=== PATIENT | male | born 1985 | race Caucasian/White ===

== ENCOUNTER 2019-01-23 13:58 | Emergency (ER) | payer SELFPAY ==
[2019-01-23] MEDS ORDERED: Ibuprofen 800 MG Tab PO ONE (14:52)
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
== END 2019-01-23 16:00 | disposition home or self-care (01) ==
LOC: MW.ED 13:58
DX: J06.9 Acute upper respiratory infection, unspecified (principal); F17.210 Nicotine dependence, cigarettes, uncomplicated; Z88.0 Allergy status to penicillin; Z88.1 Allergy status to other antibiotic agents; Z88.5 Allergy status to narcotic agent
CPT/HCPCS: 87804; 99283; A9270; 99282

== ENCOUNTER 2019-02-07 21:34 | Emergency (ER) | payer SELFPAY ==
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
[2019-02-07] MEDS ORDERED: Lidocaine 1% 10 ML MDV INJECT ONE (21:52)
== END 2019-02-07 22:06 | disposition home or self-care (01) ==
LOC: MW.ED 21:34
DX: S71.131A Puncture wound without foreign body, right thigh, initial encounter (principal); Z88.1 Allergy status to other antibiotic agents; Z88.0 Allergy status to penicillin; Z88.6 Allergy status to analgesic agent; W26.0XXA Contact with knife, initial encounter
CPT/HCPCS: 12001; 99283; J2001

== ENCOUNTER 2019-02-18 14:46 | Emergency (ER) | payer SELFPAY ==
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
== END 2019-02-18 15:28 | disposition home or self-care (01) ==
LOC: MW.ED 14:46
DX: S71.131D Puncture wound without foreign body, right thigh, subsequent encounter (principal); F17.210 Nicotine dependence, cigarettes, uncomplicated; Z88.1 Allergy status to other antibiotic agents; Z88.0 Allergy status to penicillin; Z88.6 Allergy status to analgesic agent; W26.0XXD Contact with knife, subsequent encounter
CPT/HCPCS: 99282

== ENCOUNTER 2019-04-13 15:53 | Emergency (ER) | payer SELFPAY ==
[2019-04-13] MEDS ORDERED: Ondansetron 4 MG/2 ML SDV IVPUSH ONE (16:28)
[2019-04-13] MEDS ORDERED: Pantoprazole 40 MG Vial IVPUSH ONE (16:28)
[2019-04-13] MEDS ORDERED: Sodium Chloride 0.9% 1,000 ML IV ONE (16:28)
--- NOTE | 2019-04-13 16:30 | EDM.PDOC ---
ED HPI GENERAL MEDICAL PROBLEM - General Chief Complaint: Gastrointestinal Problem Stated Complaint: VOMITING LOOSE STOOLS Time Seen by Provider: 04/13/19 16:29 Source of Information: Reports: Patient - History of Present Illness INITIAL COMMENTS - FREE TEXT/NARRATIVE: HISTORY AND PHYSICAL: History of present illness: []Patient has not been feeling well over the last couple of days with mild nausea today he did have an episode of vomiting and loose stools no fever chills sweats no chest pain shortness breath headache dizziness palpitation no urine symptoms On exam he does have sinus pain right greater than left with boggy nasal mucosa mucus production consistent with sinusitis Review of systems: As per history of present illness and below otherwise all systems reviewed and negative. Past medical history: As per history of present illness and as reviewed below otherwise noncontributory. Surgical history: As per history of present illness and as reviewed below otherwise noncontributory. Social history: No reported history of drug or alcohol abuse. Family history: As per history of present illness and as reviewed below otherwise noncontributory. Physical exam: HEENT: Atraumatic, normocephalic, pupils reactive, negative for conjunctival pallor or scleral icterus, mucous membranes moist, throat clear, neck supple, nontender, trachea midline. Sclerae sinus pain right greater than left Lungs: Clear to auscultation, breath sounds equal bilaterally, chest nontender. Heart: S1S2, regular, negative for clicks, rubs, or JVD. Abdomen: Soft, nondistended, nontender. Negative for masses or hepatosplenomegaly. Negative for costovertebral tenderness. Pelvis: Stable nontender. Genitourinary: Deferred. Rectal: Deferred. Extremities: Atraumatic, negative for cords or calf pain. Neurovascular unremarkable. Neuro: Awake, alert, oriented. Cranial nerves II through XII unremarkable. Cerebellum unremarkable. Motor and sensory unremarkable throughout. Exam nonfocal. Diagnostics: [CBC CMP UA] Therapeutics: [Normal saline proton X Zofran Abdomen flat and upright Amoxil Zofran RP W ] Impression: Viral syndrome] Sinusitis Definitive disposition and diagnosis as appropriate pending reevaluation and review of above. Abdominal Pain Score (Numeric/FACES): 5 - Related Data Allergies Allergy/AdvReac Type Severity Reaction Status Date / Time amoxicillin Allergy Other Verified 04/13/19 16:23 Penicillins Allergy Hives Verified 04/13/19 16:23 tramadol Allergy Other Verified 04/13/19 16:23 Home Meds: Home Meds Albuterol [Ventolin HFA] 2 puff INH Q4HR PRN #1 inhaler 01/23/19 [Rx] Past Medical History HEENT History: Reports: None Cardiovascular History: Reports: None Respiratory History: Reports: None Gastrointestinal History: Reports: None Genitourinary History: Reports: None Musculoskeletal History: Reports: None Neurological History: Reports: None Psychiatric History: Reports: Bipolar Endocrine/Metabolic History: Reports: None Hematologic History: Reports: None Immunologic History: Reports: None Oncologic (Cancer) History: Reports: None Dermatologic History: Reports: None - Infectious Disease History Infectious Disease History: Reports: Chicken Pox - Past Surgical History Head Surgeries/Procedures: Reports: None Social & Family History - Family History Family Medical History: Noncontributory - Tobacco Use Smoking Status *Q: Current Every Day Smoker Years of Tobacco use: 20 Packs/Tins Daily: 2 - Caffeine Use Caffeine Use: Reports: Coffee - Recreational Drug Use Recreational Drug Use: Yes Recreational Drug Type: Reports: Marijuana/Hashish Recreational Drug Use Frequency: Weekly ED ROS GENERAL - Review of Systems Review Of Systems: See Below ED EXAM, GENERAL - Physical Exam Exam: See Below Course - Vital Signs Last Recorded V/S: Last Vital Signs Temp 97.4 F 04/13/19 16:23 Pulse 79 04/13/19 17:47 Resp 18 04/13/19 17:47 BP 135/88 04/13/19 17:47 Pulse Ox 95 04/13/19 17:47 - Orders/Labs/Meds Orders: Active Orders 24 hr Category Date Time Status Abdomen 2V AP Flat Upright [CR] Stat Exams 04/13/19 17:44 Taken Labs: Laboratory Tests 04/13/19 04/13/19 04/13/19 Range/Units 16:51 16:51 16:55 WBC 10.69 (4.0-11.0) K/uL RBC 5.50 (4.50-5.90) M/uL Hgb 17.9 H (13.0-17.0) g/dL Hct 49.1 (38.0-50.0) % MCV 89.3 (80.0-98.0) fL MCH 32.5 H (27.0-32.0) pg MCHC 36.5 (31.0-37.0) g/dL RDW Std Deviation 41.0 (28.0-62.0) fl RDW Coeff of [place] 13 (11.0-15.0) % Plt Count 209 (150-400) K/uL MPV 10.30 (7.40-12.00) fL Neut % (Auto) 72.8 (48.0-80.0) % Lymph % (Auto) 19.8 (16.0-40.0) % [place] % (Auto) 6.5 (0.0-15.0) % Eos % (Auto) 0.7 (0.0-7.0) % Baso % (Auto) 0.2 (0.0-1.5) % Neut # (Auto) 7.8 H (1.4-5.7) K/uL Lymph # (Auto) 2.1 (0.6-2.4) K/uL [place] # (Auto) 0.7 (0.0-0.8) K/uL Eos # (Auto) 0.1 (0.0-0.7) K/uL Baso # (Auto) 0.0 (0.0-0.1) K/uL Nucleated RBC % 0.0 /100WBC Nucleated RBCs # 0 K/uL Sodium 139 (136-148) mmol/L Potassium 3.6 (3.5-5.1) mmol/L Chloride 103 (98-107) mmol/L Carbon Dioxide 24.9 (21.0-32.0) mmol/L BUN 7 (7.0-18.0) mg/dL Creatinine 0.8 (0.8-1.3) mg/dL Est Cr Clr Drug Dosing 145.50 mL/min Estimated GFR (MDRD) > 60.0 ml/min Glucose 86 (74-106) mg/dL Calcium 8.6 (8.5-10.1) mg/dL Total Bilirubin 0.6 (0.2-1.0) mg/dL AST 41 H (15-37) IU/L ALT 46 (14-63) IU/L Alkaline Phosphatase 102 (46-116) U/L Total Protein 7.4 (6.4-8.2) g/dL Albumin 3.9 (3.4-5.0) g/dL Globulin 3.5 (2.6-4.0) g/dL Albumin/Globulin Ratio 1.1 (0.9-1.6) Urine Color YELLOW Urine Appearance CLEAR Urine pH 7.0 (5.0-8.0) Ur Specific [place] 1.015 (1.001-1.035) Urine Protein NEGATIVE (NEGATIVE) mg/dL Urine Glucose (UA) NEGATIVE (NEGATIVE) mg/dL Urine Ketones NEGATIVE (NEGATIVE) mg/dL Urine Occult Blood NEGATIVE (NEGATIVE) Urine Nitrite NEGATIVE (NEGATIVE) Urine Bilirubin NEGATIVE (NEGATIVE) Urine Urobilinogen 0.2 (<2.0) EU/dL Ur Leukocyte Esterase NEGATIVE (NEGATIVE) Meds: Medications Discontinued Medications Generic Name Dose Route Start Last Admin Trade Name Freq PRN Reason Stop Dose Admin Sodium Chloride 1,000 mls @ 999 mls/hr 04/13/19 16:28 04/13/19 17:00 Normal Saline IV 04/13/19 17:28 999 mls/hr STAT ONE Administration Ondansetron HCl 8 mg 04/13/19 16:28 04/13/19 17:01 Zofran IVPUSH 04/13/19 16:29 8 mg ONETIME ONE Administration Pantoprazole Sodium 80 mg 04/13/19 16:28 04/13/19 17:02 Protonix Iv IVPUSH 04/13/19 16:29 80 mg .BOLUS ONE Administration Departure - Departure Time of Disposition: 18:37 Disposition: Home, Self-Care 01 Condition: Good Clinical Impression: Viral syndrome, Sinusitis - Discharge Information Referrals: PCP,None [Primary Care Provider] - Forms: ED Department Discharge Additional Instructions: Medication as prescribed [id number]-[id number] allergy medication such as Zyrtec or Claritin may benefit Return if symptoms persist or worsen Follow-up with primary care in 2 weeks [facility] - Primary Care [address] [place] [address] The following information is given to patients seen in the emergency department who are being discharged to home. This information is to outline your options for follow-up care. We provide all patients seen in our emergency department with a follow-up referral. The need for follow-up, as well as the timing and circumstances, are variable depending upon the specifics of your emergency department visit. If you don't have a primary care physician on staff, we will provide you with a referral. We always advise you to contact your personal physician following an emergency department visit to inform them of the circumstance of the visit and for follow-up with them and/or the need for any referrals to a consulting specialist. The emergency department will also refer you to a specialist when appropriate. This referral assures that you have the opportunity for follow-up care with a specialist. All of these measure are taken in an effort to provide you with optimal care, which includes your follow-up. Under all circumstances we always encourage you to contact your private physician who remains a resource for coordinating your care. When calling for follow-up care, please make the office aware that this follow-up is from your recent emergency room visit. If for any reason you are refused follow-up, please contact the [facility] emergency department at and asked to speak to the emergency department charge nurse. - My Orders Last 24 Hours: My Active Orders 04/13/19 17:44 Abdomen 2V AP Flat Upright [CR] Stat - Assessment/Plan Last 24 Hours: My Active Orders 04/13/19 17:44 Abdomen 2V AP Flat Upright [CR] Stat
[2019-04-13 17:43] LABS: CHLORIDE,CL 103 mmol/L (98-107); SODIUM,NA 139 mmol/L (136-148)
--- NOTE | 2019-04-13 18:47 | CR ---
INDICATION: Nausea and vomiting since yesterday TECHNIQUE: Abdomen 4 view. COMPARISON: None. FINDINGS: Bowel: Bowel pattern is normal. No significant stool in the colon. Soft tissues: No sign of free air. No sign of soft tissue mass. No suspicious calcifications. Bones: Unremarkable for age. IMPRESSION: Unremarkable abdomen. Dictated by: He James MD @ 04/13/2019 18:45:16 (Electronically Signed)
== END 2019-04-13 18:55 | disposition home or self-care (01) ==
LOC: MW.ED 15:53
DX: B34.9 Viral infection, unspecified (principal); J32.9 Chronic sinusitis, unspecified; F17.210 Nicotine dependence, cigarettes, uncomplicated; Z88.1 Allergy status to other antibiotic agents; Z88.0 Allergy status to penicillin; Z88.6 Allergy status to analgesic agent
CPT/HCPCS: 74019; 80053; 81003; 85025; 96361; 96374; 96375; 99284; C9113; J2405; J7040; 99283

== ENCOUNTER 2019-05-04 10:11 | Emergency (ER) | payer SELFPAY ==
--- NOTE | 2019-05-04 10:39 | EDM.PDOC ---
ED HPI GENERAL MEDICAL PROBLEM - General Chief Complaint: Medication Administration Stated Complaint: ALLERGIC REACTION Time Seen by Provider: 05/04/19 10:33 - History of Present Illness INITIAL COMMENTS - FREE TEXT/NARRATIVE: 34 y/o male here for nasal congestion and sore throat. Patient states that he has been having clear nasal discharge for past few days. No fevers. Non productive cough. He smokes on daily basis. Sore throat. No nausea, vomiting. Was recently seen in the ER few weeks ago and prescribed antibiotics. States that he took them but did no buy rest of recommended medications. no other sick contacts. - Related Data Allergies Allergy/AdvReac Type Severity Reaction Status Date / Time amoxicillin Allergy Other Verified 05/04/19 10:16 Penicillins Allergy Hives Verified 05/04/19 10:16 tramadol Allergy Other Verified 05/04/19 10:16 Home Meds: Home Meds Albuterol [Ventolin HFA] 2 puff INH Q4HR PRN #1 inhaler 01/23/19 [Rx] Past Medical History HEENT History: Reports: None Cardiovascular History: Reports: None Respiratory History: Reports: None Gastrointestinal History: Reports: None Genitourinary History: Reports: None Musculoskeletal History: Reports: None Neurological History: Reports: None Psychiatric History: Reports: Bipolar Endocrine/Metabolic History: Reports: None Hematologic History: Reports: None Immunologic History: Reports: None Oncologic (Cancer) History: Reports: None Dermatologic History: Reports: None - Infectious Disease History Infectious Disease History: Reports: Chicken Pox - Past Surgical History Head Surgeries/Procedures: Reports: None Social & Family History - Family History Family Medical History: Noncontributory - Tobacco Use Smoking Status *Q: Current Every Day Smoker Years of Tobacco use: 20 Packs/Tins Daily: 2 - Caffeine Use Caffeine Use: Reports: Coffee - Recreational Drug Use Recreational Drug Use: Yes Recreational Drug Type: Reports: Marijuana/Hashish ED ROS GENERAL - Review of Systems Review Of Systems: ROS reveals no pertinent complaints other than HPI. ED EXAM, GENERAL - Physical Exam Exam: See Below General Appearance: Alert, WD/WN, No Apparent Distress Nose: Normal Inspection, Normal Mucosa Throat/Mouth: Other (erythematous pharynx, cobblestoning present. No exudates or enalarged tonsils. No cervical lymphadenopathy. ) Respiratory/Chest: No Respiratory Distress, Lungs Clear, No Accessory Muscle Use Cardiovascular: Normal Peripheral Pulses, Regular Rate, Rhythm GI/Abdominal: Normal Bowel Sounds, Soft, Non-Tender Skin Exam: Warm, Dry Course - Vital Signs Text/Narrative:: Recommended flonase BID for allergy symptoms. Keep hydrated. Quit smoking. Last Recorded V/S: Last Vital Signs Temp 36.9 C 05/04/19 10:16 Pulse 109 H 05/04/19 10:16 Resp 16 05/04/19 10:16 BP 140/88 05/04/19 10:16 Pulse Ox 97 05/04/19 10:16 Departure - Departure Time of Disposition: 10:37 Disposition: Home, Self-Care 01 Clinical Impression: Seasonal allergies, Post-nasal drip - Discharge Information Instructions: Allergies, Adult, [id number], Postnasal Drip, Nasal Allergies Referrals: PCP,None [Primary Care Provider] - Additional Instructions: The following information is given to patients seen in the emergency department who are being discharged to home. This information is to outline your options for follow-up care. We provide all patients seen in our emergency department with a follow-up referral. The need for follow-up, as well as the timing and circumstances, are variable depending upon the specifics of your emergency department visit. If you don't have a primary care physician on staff, we will provide you with a referral. We always advise you to contact your personal physician following an emergency department visit to inform them of the circumstance of the visit and for follow-up with them and/or the need for any referrals to a consulting specialist. The emergency department will also refer you to a specialist when appropriate. This referral assures that you have the opportunity for follow-up care with a specialist. All of these measure are taken in an effort to provide you with optimal care, which includes your follow-up. Under all circumstances we always encourage you to contact your private physician who remains a resource for coordinating your care. When calling for follow-up care, please make the office aware that this follow-up is from your recent emergency room visit. If for any reason you are refused follow-up, please contact the [facility] Emergency Department at and asked to speak to the emergency department charge nurse. Follow-up with PCP. Buy Flonase over the counter. Take twice a day. Can take other over the counter medications for allergies like Claritin, Zyrtec. Stay hydrated.
== END 2019-05-04 10:47 | disposition home or self-care (01) ==
LOC: MW.ED 10:11
DX: J30.2 Other seasonal allergic rhinitis (principal); R09.82 Postnasal drip; F17.210 Nicotine dependence, cigarettes, uncomplicated; Z88.1 Allergy status to other antibiotic agents; Z88.0 Allergy status to penicillin; Z88.6 Allergy status to analgesic agent
CPT/HCPCS: 99281

== ENCOUNTER 2019-05-27 13:07 | Emergency (ER) | payer SELFPAY ==
--- NOTE | 2019-05-27 14:02 | EDM.PDOC ---
ED HPI GENERAL MEDICAL PROBLEM - General Chief Complaint: ENT Problem Stated Complaint: PERSISTANT THROAT PAIN Time Seen by Provider: 05/27/19 13:18 Source of Information: Reports: Patient History Limitations: Reports: No Limitations - History of Present Illness INITIAL COMMENTS - FREE TEXT/NARRATIVE: HISTORY AND PHYSICAL: History of present illness: Patient is a 34-year-old male who presents to the ED today for concern of sore throat 1 month. Patient states is an alcoholic and he is addicted to alcohol. He states he drinks every day, all day long. Patient states every morning when he wakes up he has withdrawal symptoms and states that he "shakes". Patient states when he wakes up every morning he always vomits from both withdraw and drinking too much and has done this chronically, daily, for months on end. Patient states now, over the past month, his throat has become more sore. He states his sore throat is worsened again when he vomits daily in the mornings. Patient states after vomiting he notices that he loses his voice which does return by the end of the day. Patient states when he vomits again in the morning , he then again looses his voice. Patient denies any difficulties with swallowing, breathing, feeling short of breath. Patient denies fever, chills, chest pain, shortness of breath, or cough. Denies headache, neck stiff ness, change in vision, syncope, or near syncope. Denies nausea, vomiting, abdominal pain, diarrhea, constipation, or dysuria. Has not noted any blood in urine or stool. Patient has been eating and drinking appropriately. Review of systems: As per history of present illness and below otherwise all systems reviewed and negative. Past medical history: As per history of present illness and as reviewed below otherwise noncontributory. Surgical history: As per history of present illness and as reviewed below otherwise noncontributory. Social history: See social history for further information Family history: As per history of present illness and as reviewed below otherwise noncontributory. Physical exam: General: Patient is alert, oriented, and in no acute distress. Patient sitting comfortably on exam table. HEENT: Atraumatic, normocephalic, pupils equal and reactive bilaterally, negative for conjunctival pallor or scleral icterus, mucous membranes moist, TMs normal bilaterally, neck supple, nontender, trachea midline. No drooling or trismus noted. No meningeal signs. No hot potato voice noted. Generalized poor dentition with various eroding of teeth. Patient's posterior oropharynx does have generalized erythema but no signs of edema, or soft tissue swelling. Tonsils are not enlarged without exudate. Lungs: Clear to auscultation, breath sounds equal bilaterally, chest nontender. Heart: S1S2, regular rate and rhythm without overt murmur Abdomen: Soft, nondistended, nontender. Negative for masses or hepatosplenomegaly. Negative for costovertebral tenderness. Pelvis: Stable nontender. Genitourinary: Deferred. Rectal: Deferred. Skin: Intact, warm, dry. No lesions or rashes noted. Extremities: Atraumatic, negative for cords or calf pain. Neurovascular unremarkable. Neuro: Awake, alert, oriented. Cranial nerves II through XII unremarkable. Cerebellum unremarkable. Motor and sensory unremarkable throughout. Exam nonfocal. Notes: Discussed the importance of ENT follow up as well as with a primary care provider. Had a thorough discussion with patient about options for alcohol treatment / detox. Patient states he is not willing to receive treatment at this time. Voices understanding and is agreeable to plan of care. Denies any further questions or concerns at this time. Diagnostics: strep Therapeutics: None Prescription: Prilosec Impression: Pharyngitis Laryngitis Chronic alcohol dependence, continuous Plan: 1. Take medication as prescribed. Also can use OTC Maalox for symptomatic relief. Follow up with your primary care provider / ENT as discussed 2. Information for the ENT clinic is provided above. Call the number above for follow up. 3. You can use throat lozenges for throat discomfort. Return to the ED as needed and as discussed. Definitive disposition and diagnosis as appropriate pending reevaluation and review of above. Throat Pain Score (Numeric/FACES): 5 - Related Data Allergies Allergy/AdvReac Type Severity Reaction Status Date / Time amoxicillin Allergy Hives Verified 05/27/19 13:13 Penicillins Allergy Hives Verified 05/04/19 10:16 tramadol Allergy Hives Verified 05/27/19 13:13 Home Meds: Home Meds Albuterol [Ventolin HFA] 2 puff INH Q4HR PRN #1 inhaler 01/23/19 [Rx] Omeprazole Magnesium [Prilosec] 10 mg PO BID 14 Days #28 [email or web address] 05/27/19 [Rx ] Past Medical History HEENT History: Reports: None Cardiovascular History: Reports: None Respiratory History: Reports: None Gastrointestinal History: Reports: None Genitourinary History: Reports: None Musculoskeletal History: Reports: None Neurological History: Reports: None Psychiatric History: Reports: Bipolar Endocrine/Metabolic History: Reports: None Hematologic History: Reports: None Immunologic History: Reports: None Oncologic (Cancer) History: Reports: None Dermatologic History: Reports: None - Infectious Disease History Infectious Disease History: Reports: Chicken Pox - Past Surgical History Head Surgeries/Procedures: Reports: None Social & Family History - Family History Family Medical History: Noncontributory - Tobacco Use Smoking Status *Q: Current Every Day Smoker Years of Tobacco use: 24 Packs/Tins Daily: 2 - Caffeine Use Caffeine Use: Reports: Coffee, Energy Drinks, Soda, Tea - Recreational Drug Use Recreational Drug Use: Yes Recreational Drug Type: Reports: Marijuana/Hashish ED ROS GENERAL - Review of Systems Review Of Systems: ROS reveals no pertinent complaints other than HPI. ED EXAM, GENERAL - Physical Exam Exam: See Below (See dictation) Course - Vital Signs Last Recorded V/S: Last Vital Signs Temp 35.8 C 05/27/19 13:13 Pulse 84 05/27/19 13:13 Resp 16 05/27/19 13:13 BP 139/88 05/27/19 13:13 Pulse Ox 97 05/27/19 13:13 - Orders/Labs/Meds Orders: Active Orders 24 hr Category Date Time Status CULTURE STREP A CONFIRMATION [RM] Stat Lab 05/27/19 13:24 Results STREP SCRN A RAPID W CULT CONF [RM] Stat Lab 05/27/19 13:24 Results Departure - Departure Time of Disposition: 14:14 Disposition: Home, Self-Care 01 Clinical Impression: Laryngitis, Chronic alcohol dependence, continuous Pharyngitis Qualifiers: Pharyngitis/tonsillitis etiology: unspecified etiology Qualified Code(s): J02.9 - Acute pharyngitis, unspecified - Discharge Information Prescriptions: Omeprazole Magnesium [Prilosec] 10 mg PO BID 14 Days #28 [email or web address] Referrals: PCP,None [Primary Care Provider] - Forms: ED Department Discharge Additional Instructions: The following information is given to patients seen in the emergency department who are being discharged to home. This information is to outline your options for follow-up care. We provide all patients seen in our emergency department with a follow-up referral. The need for follow-up, as well as the timing and circumstances, are variable depending upon the specifics of your emergency department visit. If you don't have a primary care physician on staff, we will provide you with a referral. We always advise you to contact your personal physician following an emergency department visit to inform them of the circumstance of the visit and for follow-up with them and/or the need for any referrals to a consulting specialist. The emergency department will also refer you to a specialist when appropriate. This referral assures that you have the opportunity for follow-up care with a specialist. All of these measure are taken in an effort to provide you with optimal care, which includes your follow-up. Under all circumstances we always encourage you to contact your private physician who remains a resource for coordinating your care. When calling for follow-up care, please make the office aware that this follow-up is from your recent emergency room visit. If for any reason you are refused follow-up, please contact the [facility] Emergency Department at and asked to speak to the emergency department charge nurse. [facility] Primary Care [address] [place] [id number] [address] [facility] Ears, Nose, and Throat Specialist, Dr. Deric Husain [id number] [address] 1. Take medication as prescribed. Also can use OTC Maalox for symptomatic relief. Follow up with your primary care provider / ENT as discussed 2. Information for the ENT clinic is provided above. Call the number above for follow up. 3. You can use throat lozenges for throat discomfort. Return to the ED as needed and as discussed. - My Orders Last 24 Hours: My Active Orders 05/27/19 13:24 CULTURE STREP A CONFIRMATION [RM] Stat STREP SCRN A RAPID W CULT CONF [RM] Stat - Assessment/Plan Last 24 Hours: My Active Orders 05/27/19 13:24 CULTURE STREP A CONFIRMATION [] Stat STREP SCRN A RAPID W CULT CONF [RM] Stat
== END 2019-05-27 14:33 | disposition home or self-care (01) ==
LOC: MW.ED 13:07
DX: J04.0 Acute laryngitis (principal); J02.9 Acute pharyngitis, unspecified; F10.239 Alcohol dependence with withdrawal, unspecified; F17.210 Nicotine dependence, cigarettes, uncomplicated; Z88.5 Allergy status to narcotic agent; Z88.0 Allergy status to penicillin; Z88.1 Allergy status to other antibiotic agents
CPT/HCPCS: 87081; 87880-QW; 99283

== ENCOUNTER 2019-11-21 08:18 | Inpatient (IN) | payer MEDICAID, OTHER ==
--- NOTE | 2019-11-21 08:40 | EDM.PDOC ---
ED HPI GENERAL MEDICAL PROBLEM - General Chief Complaint: Abdominal Pain Stated Complaint: CHEST PAIN Time Seen by Provider: 11/21/19 08:39 Source of Information: Reports: Patient History Limitations: Reports: No Limitations - History of Present Illness INITIAL COMMENTS - FREE TEXT/NARRATIVE: This 34 year old male is admitted to the ED with a chief complaint of epigastric abdominal pain through to the back that started three days ago and has gotten worse. He denies any chest pain, SOB or difficulty breathing. He complains of nausea and vomiting. He states that he took anti acids without relief. He states that he does drink alcohol about 2-3 "Tall Boys"/day for the past two to three years. He stats that the pain is sharp to dull but stays in his epigastric through to the back.l Onset: Gradual Duration: Day(s): (3 days ago), Constant Location: Reports: Other (epigastric area through to the back.) Quality: Reports: Sharp (and constant) Severity: Moderate (to severe) Improves with: Reports: None Worsens with: Reports: Eating (or drinking fluids.) Context: Reports: Activity Associated Symptoms: Reports: Loss of Appetite, Nausea/Vomiting. Denies: Chest Pain Epigastric Pain Score (Numeric/FACES): 10 - Related Data Allergies Allergy/AdvReac Type Severity Reaction Status Date / Time amoxicillin Allergy Hives Verified 11/21/19 08:22 Penicillins Allergy Hives Verified 11/21/19 08:22 tramadol Allergy Hives Verified 11/21/19 08:22 Home Meds: Home Meds Albuterol [Ventolin HFA] 2 puff INH Q4HR PRN #1 inhaler 01/23/19 [Rx] Omeprazole Magnesium [Prilosec] 10 mg PO BID 14 Days #28 suspdr.pkt 05/27/19 [Rx ] Past Medical History HEENT History: Reports: None Cardiovascular History: Reports: None Respiratory History: Reports: Asthma Gastrointestinal History: Reports: GERD, Other (See Below) Other Gastrointestinal History: 2012 ruptured sleen Genitourinary History: Reports: None Musculoskeletal History: Reports: None Neurological History: Reports: None Psychiatric History: Reports: Bipolar Endocrine/Metabolic History: Reports: None Hematologic History: Reports: None Immunologic History: Reports: None Oncologic (Cancer) History: Reports: None Dermatologic History: Reports: None - Infectious Disease History Infectious Disease History: Reports: Chicken Pox - Past Surgical History Head Surgeries/Procedures: Reports: None HEENT Surgical History: Reports: None Cardiovascular Surgical History: Reports: None Respiratory Surgical History: Reports: None GI Surgical History: Reports: None Male Surgical History: Reports: None Endocrine Surgical History: Reports: None Neurological Surgical History: Reports: None Musculoskeletal Surgical History: Reports: None Oncologic Surgical History: Reports: None Dermatological Surgical History: Reports: None Social & Family History - Family History Family Medical History: Noncontributory - Tobacco Use Smoking Status *Q: Current Every Day Smoker Years of Tobacco use: 20 Packs/Tins Daily: 2 - Caffeine Use Caffeine Use: Reports: None - Alcohol Use Days Per Week of Alcohol Use: 7 Number of Drinks Per Day: 3 Total Drinks Per Week: 21 - Recreational Drug Use Recreational Drug Use: Yes Drug Use in Last 12 Months: Yes Recreational Drug Type: Reports: Marijuana/Hashish Recreational Drug Use Frequency: Socially ED ROS GENERAL - Review of Systems Review Of Systems: See Below Constitutional: Reports: No Symptoms HEENT: Reports: No Symptoms Respiratory: Reports: No Symptoms Cardiovascular: Reports: No Symptoms Endocrine: Reports: No Symptoms GI/Abdominal: Reports: Abdominal Pain, Anorexia, Nausea, Vomiting. Denies: Black Stool, Bloody Stool, Constipation, Diarrhea, Hematochezia, Melena : Reports: No Symptoms Musculoskeletal: Reports: No Symptoms Skin: Reports: No Symptoms Neurological: Reports: No Symptoms Psychiatric: Reports: No Symptoms Hematologic/Lymphatic: Reports: No Symptoms ED EXAM, GI/ABD - Physical Exam Exam: See Below Exam Limited By: No Limitations General Appearance: Alert, Moderate Distress (complaining of abdominal pain in the epigastric area.) Eyes: Bilateral: Normal Appearance, EOMI Ears: Normal External Exam, Normal Canal, Hearing Grossly Normal, Normal TMs Nose: Normal Inspection, Normal Mucosa, No Blood Throat/Mouth: Normal Inspection, Normal Lips, Normal Teeth, Normal Gums, Normal Oropharynx, Normal Voice, No Airway Compromise Head: Atraumatic, Normocephalic Neck: Normal Inspection, Supple, Non-Tender, Full Range of Motion Respiratory/Chest: No Respiratory Distress, Lungs Clear, Normal Breath Sounds, No Accessory Muscle Use, Chest Non-Tender Cardiovascular: Normal Peripheral Pulses, Regular Rate, Rhythm, No Edema, No Gallop, No JVD, No Murmur, No Rub GI/Abdominal Exam: Normal Bowel Sounds, No Abnormal Bruit, No Mass, Distended ( slightly distended.), Guarding, Tender (tenderness noted in the epigastric area. ). No: Rebound, Hernia, Mass, Hepatomegaly (Male) Exam: No Hernia, Normal Inspection, Normal Prostate, Circumcised Rectal (Males) Exam: Normal Exam, Normal Rectal Tone, Prostate Normal, Heme - Stool Back Exam: Normal Inspection, Full Range of Motion. No: CVA Tenderness (L), CVA Tenderness (R) Extremities: Normal Inspection, Normal Range of Motion, Non-Tender, Normal Capillary Refill, No Pedal Edema Neurological: Alert, Oriented, CN II-XII Intact, Normal Cognition, Normal Gait, Normal Reflexes, No Motor/Sensory Deficits Course - Vital Signs Text/Narrative:: I talked with the patient and Dr. Ashton regarding this patient pancreatitis at 11:34AM. He will be admitted for his pancreatitis and alcohol abuse which could lead to withdrawal symptoms. The patient agrees with the admission plan. Last Recorded V/S: Last Vital Signs Temp 95.7 F 11/21/19 08:20 Pulse 78 11/21/19 10:38 Resp 16 11/21/19 10:38 BP 152/101 H 11/21/19 10:38 Pulse Ox 96 11/21/19 10:38 - Orders/Labs/Meds Orders: Active Orders 24 hr Category Date Time Status EKG 12 Lead [EKG Documentation Completion] [RC] STAT Care 11/21/19 09:02 Active EKG 12 Lead [EKG Documentation Completion] [RC] STAT Care 11/21/19 09:02 Inactive Hemoccult [OCCULT BLOOD DIAGNOSTIC] [OP] Stat Lab 11/21/19 08:57 Ordered Labs: Laboratory Tests 11/21/19 11/21/19 11/21/19 Range/Units 09:19 09:19 09:19 WBC 10.58 (4.0-11.0) K/uL RBC 4.99 (4.50-5.90) M/uL Hgb 16.7 (13.0-17.0) g/dL Hct 45.8 (38.0-50.0) % MCV 91.8 (80.0-98.0) fL MCH 33.5 H (27.0-32.0) pg MCHC 36.5 (31.0-37.0) g/dL RDW Std Deviation 43.5 (28.0-62.0) fl RDW Coeff of [place]th 13 (11.0-15.0) % Plt Count 179 (150-400) K/uL MPV 10.50 (7.40-12.00) fL Neut % (Auto) 83.2 H (48.0-80.0) % Lymph % (Auto) 9.2 L (16.0-40.0) % [place] % (Auto) 6.7 (0.0-15.0) % Eos % (Auto) 0.7 (0.0-7.0) % Baso % (Auto) 0.2 (0.0-1.5) % Neut # (Auto) 8.8 H (1.4-5.7) K/uL Lymph # (Auto) 1.0 (0.6-2.4) K/uL [place] # (Auto) 0.7 (0.0-0.8) K/uL Eos # (Auto) 0.1 (0.0-0.7) K/uL Baso # (Auto) 0.0 (0.0-0.1) K/uL Nucleated RBC % 0.0 /100WBC Nucleated RBCs # 0 K/uL Lactate 1.2 (0.20-2.00) mmol/L Sodium 140 (136-148) mmol/L Potassium 3.9 (3.5-5.1) mmol/L Chloride 102 (98-107) mmol/L Carbon Dioxide 27.5 (21.0-32.0) mmol/L BUN 13 (7.0-18.0) mg/dL Creatinine 1.0 (0.8-1.3) mg/dL Est Cr Clr Drug Dosing 116.40 mL/min Estimated GFR (MDRD) > 60.0 ml/min Glucose 138 H (74-106) mg/dL Calcium 8.8 (8.5-10.1) mg/dL Total Bilirubin 1.2 H (0.2-1.0) mg/dL AST 39 H (15-37) IU/L ALT 47 (14-63) IU/L Alkaline Phosphatase 103 (46-116) U/L Troponin I (0.000-0.056) ng/mL Total Protein 6.9 (6.4-8.2) g/dL Albumin 3.5 (3.4-5.0) g/dL Globulin 3.4 (2.6-4.0) g/dL Albumin/Globulin Ratio 1.0 (0.9-1.6) Lipase 882 H (73-393) U/L Urine Color Urine Appearance Urine pH (5.0-8.0) Ur Specific [place] (1.001-1.035) Urine Protein (NEGATIVE) mg/dL Urine Glucose (UA) (NEGATIVE) mg/dL Urine Ketones (NEGATIVE) mg/dL Urine Occult Blood (NEGATIVE) Urine Nitrite (NEGATIVE) Urine Bilirubin (NEGATIVE) Urine Ictotest Urine Urobilinogen (<2.0) EU/dL Ur Leukocyte Esterase (NEGATIVE) 11/21/19 11/21/19 Range/Units 09:19 09:44 WBC (4.0-11.0) K/uL RBC (4.50-5.90) M/uL Hgb (13.0-17.0) g/dL Hct (38.0-50.0) % MCV (80.0-98.0) fL MCH (27.0-32.0) pg MCHC (31.0-37.0) g/dL RDW Std Deviation (28.0-62.0) fl RDW Coeff of Roberth (11.0-15.0) % Plt Count (150-400) K/uL MPV (7.40-12.00) fL Neut % (Auto) (48.0-80.0) % Lymph % (Auto) (16.0-40.0) % [place] % (Auto) (0.0-15.0) % Eos % (Auto) (0.0-7.0) % Baso % (Auto) (0.0-1.5) % Neut # (Auto) (1.4-5.7) K/uL Lymph # (Auto) (0.6-2.4) K/uL [place] # (Auto) (0.0-0.8) K/uL Eos # (Auto) (0.0-0.7) K/uL Baso # (Auto) (0.0-0.1) K/uL Nucleated RBC % /100WBC Nucleated RBCs # K/uL Lactate (0.20-2.00) mmol/L Sodium (136-148) mmol/L Potassium (3.5-5.1) mmol/L Chloride (98-107) mmol/L Carbon Dioxide (21.0-32.0) mmol/L BUN (7.0-18.0) mg/dL Creatinine (0.8-1.3) mg/dL Est Cr Clr Drug Dosing mL/min Estimated GFR (MDRD) ml/min Glucose (74-106) mg/dL Calcium (8.5-10.1) mg/dL Total Bilirubin (0.2-1.0) mg/dL AST (15-37) IU/L ALT (14-63) IU/L Alkaline Phosphatase (46-116) U/L Troponin I < 0.050 (0.000-0.056) ng/mL Total Protein (6.4-8.2) g/dL Albumin (3.4-5.0) g/dL Globulin (2.6-4.0) g/dL Albumin/Globulin Ratio (0.9-1.6) Lipase (73-393) U/L Urine Color YELLOW Urine Appearance HAZY Urine pH 5.5 (5.0-8.0) Ur Specific [place] 1.025 (1.001-1.035) Urine Protein NEGATIVE (NEGATIVE) mg/dL Urine Glucose (UA) NEGATIVE (NEGATIVE) mg/dL Urine Ketones NEGATIVE (NEGATIVE) mg/dL Urine Occult Blood NEGATIVE (NEGATIVE) Urine Nitrite NEGATIVE (NEGATIVE) Urine Bilirubin SMALL H (NEGATIVE) Urine Ictotest NEGATIVE Urine Urobilinogen 0.2 (<2.0) EU/dL Ur Leukocyte Esterase NEGATIVE (NEGATIVE) Meds: Medications Discontinued Medications Generic Name Dose Route Start Last Admin Trade Name Freq PRN Reason Stop Dose Admin Sodium Chloride 1,000 mls @ 1,000 mls/hr 11/21/19 08:58 11/21/19 09:23 Normal Saline IV 11/21/19 09:57 1,000 mls/hr .Bolus ONE Administration Iopamidol 100 ml 11/21/19 10:09 11/21/19 10:13 Isovue Multipack-370 (76%) IVPUSH 11/21/19 10:10 100 ml ONETIME STA Administration Morphine Sulfate 4 mg 11/21/19 08:59 11/21/19 09:22 Morphine IVPUSH 11/21/19 09:00 4 mg ONETIME ONE Administration Ondansetron HCl 4 mg 11/21/19 09:00 11/21/19 09:23 Zofran IVPUSH 11/21/19 09:01 4 mg ONETIME ONE Administration Departure - Departure Time of Disposition: 11:37 Disposition: Admitted As Inpatient 68 Condition: Fair Clinical Impression: AA (alcohol abuse) Acute pancreatitis Qualifiers: Pancreatitis type: alcohol induced Acute pancreatitis complication: uninfected necrosis Qualified Code(s): K85.21 - Alcohol induced acute pancreatitis with uninfected necrosis - Discharge Information *PRESCRIPTION DRUG MONITORING PROGRAM REVIEWED*: Yes *COPY OF PRESCRIPTION DRUG MONITORING REPORT IN PATIENT MARILY: Yes Sepsis Event Note - Evaluation Sepsis Screening Result: No Definite Risk - Focused Exam Vital Signs: Vital Signs Temp Pulse Resp BP Pulse Ox 11/21/19 10:38 78 16 152/101 H 96 11/21/19 08:20 95.7 F 101 H 18 145/88 H 99 11/21/19 08:18 105 H 145/88 H 95 Date Exam was Performed: 11/21/19 Time Exam was Performed: 11:31 - My Orders Last 24 Hours: My Active Orders 11/21/19 08:57 Hemoccult [OCCULT BLOOD DIAGNOSTIC] [OP] Stat 11/21/19 09:02 EKG 12 Lead [EKG Documentation Completion] [RC] STAT EKG 12 Lead [EKG Documentation Completion] [RC] STAT - Assessment/Plan Last 24 Hours: My Active Orders 11/21/19 08:57 Hemoccult [OCCULT BLOOD DIAGNOSTIC] [OP] Stat 11/21/19 09:02 EKG 12 Lead [EKG Documentation Completion] [RC] STAT EKG 12 Lead [EKG Documentation Completion] [RC] STAT
[2019-11-21] MEDS ORDERED: Sodium Chloride 0.9% 1,000 ML IV ONE ×3 (08:58→12:00)
[2019-11-21] MEDS ORDERED: Morphine 4 MG/ML Syringe IVPUSH ONE (08:59)
[2019-11-21] MEDS ORDERED: Ondansetron 4 MG/2 ML SDV IVPUSH ONE (09:00)
[2019-11-21 09:52] LABS: BLOOD UREA NITROGEN,BUN 13 mg/dL (7.0-18.0); CARBON DIOXIDE,CO2 27.5 mmol/L (21.0-32.0); CHLORIDE,CL 102 mmol/L (98-107); GLUCOSE RANDOM 138 mg/dL (74-106); LIPASE 882 U/L (73-393); POTASSIUM,K 3.9 mmol/L (3.5-5.1); SODIUM,NA 140 mmol/L (136-148)
[2019-11-21] MEDS ORDERED: Iopamidol 755 MG/ML 200 ML Multipack Bottle IVPUSH STA (10:09)
--- NOTE | 2019-11-21 10:39 | CT ---
CT abdomen and pelvis Technique: Multiple axial sections were obtained from above the dome of the diaphragm inferiorly through the pubic symphysis. Intravenous contrast was utilized. No oral contrast has been given. Comparison: No prior abdominal imaging is available. Findings: Fluid and inflammatory change is noted around the pancreas mostly involving the pancreatic head. There is also thickening of the adjacent duodenum. Uncertain if findings are due to duodenitis causing the inflammatory change around the pancreas or whether findings are due to pancreatitis causing the duodenal wall thickening. I suspect the latter is the most likely etiology. Other findings: Visualized lung bases show nothing acute. Liver contains no focal parenchymal abnormality. Spleen appears within normal limits. Adrenal glands show no nodule. Gallbladder contains no calcified gallstones. Kidneys show symmetric contrast enhancement. Small nonobstructing stone is noted within the right kidney. Aorta shows no aneurysm. No retroperitoneal adenopathy or mesenteric abnormalities are seen. Appendix is seen which is normal in size. No pelvic mass or adenopathy is seen. No free fluid or inflammatory change is appreciated. Impression: 1. Inflammatory change around the duodenum and pancreas as well as fluid. Please see above for further discussion. 2. Small nonobstructing stone within the right kidney. 3. No other acute finding is appreciated on CT study of the abdomen and pelvis. Diagnostic code #5 This report was dictated in [place] Standard Time
[2019-11-21] MEDS ORDERED: LORazepam 2 MG/ML SDV IVPUSH PRN (11:58)
[2019-11-21] MEDS ORDERED: Ondansetron 4 MG/2 ML SDV IVPUSH PRN (12:00)
--- NOTE | 2019-11-21 12:07 | PCM.HP.2 ---
H&P History of Present Illness - General Date of Service: 11/21/19 Admit Problem/Dx: Admission Diagnosis/Problem Admission Diagnosis/Problem Acute pancreatitis - History of Present Illness Initial Comments - Free Text/Narative: 34 yo male with pmh of alcohol abuse who presents with three day history of epigastric pain that radiates to his back. He reports some nausea but denies any blood in vomiting or stool. He denies any diarrhea or constipation. He has had no fevers or chest pain. Patient reports that he has not been sober for five years. He drinks about three tall boys a day. CT scan performed in ED showed inflammation about the pancreatic head and thickened duodenum. Epigastric Pain Score (Numeric/FACES): 10 - Related Data Allergies/Adverse Reactions: Allergies Allergy/AdvReac Type Severity Reaction Status Date / Time amoxicillin Allergy Hives Verified 11/21/19 08:22 Penicillins Allergy Hives Verified 11/21/19 08:22 tramadol Allergy Hives Verified 11/21/19 08:22 Home Medications: Home Meds Albuterol [Ventolin HFA] 2 puff INH Q4HR PRN #1 inhaler 01/23/19 [Rx] Omeprazole Magnesium [Prilosec] 10 mg PO BID 14 Days #28 suspdr.pkt 05/27/19 [Rx ] Past Medical History HEENT History: Reports: None Cardiovascular History: Reports: None Respiratory History: Reports: Asthma Gastrointestinal History: Reports: GERD, Other (See Below) Other Gastrointestinal History: 2012 ruptured sleen Genitourinary History: Reports: None Musculoskeletal History: Reports: None Neurological History: Reports: None Psychiatric History: Reports: Bipolar Endocrine/Metabolic History: Reports: None Hematologic History: Reports: None Immunologic History: Reports: None Oncologic (Cancer) History: Reports: None Dermatologic History: Reports: None - Infectious Disease History Infectious Disease History: Reports: Chicken Pox - Past Surgical History Head Surgeries/Procedures: Reports: None HEENT Surgical History: Reports: None Cardiovascular Surgical History: Reports: None Respiratory Surgical History: Reports: None GI Surgical History: Reports: None Male Surgical History: Reports: None Endocrine Surgical History: Reports: None Neurological Surgical History: Reports: None Musculoskeletal Surgical History: Reports: None Oncologic Surgical History: Reports: None Dermatological Surgical History: Reports: None Social & Family History - Family History Family Medical History: Noncontributory - Tobacco Use Smoking Status *Q: Current Every Day Smoker Years of Tobacco use: 20 Packs/Tins Daily: 2 - Caffeine Use Caffeine Use: Reports: None - Alcohol Use Days Per Week of Alcohol Use: 7 Number of Drinks Per Day: 3 Total Drinks Per Week: 21 - Recreational Drug Use Recreational Drug Use: Yes Drug Use in Last 12 Months: Yes Recreational Drug Type: Reports: Marijuana/Hashish Recreational Drug Use Frequency: Socially H&P Review of Systems - Review of Systems: Review Of Systems: Comprehensive ROS is negative, except as noted in HPI. Exam - Exam Exam: See Below - Vital Signs Vital Signs: Last Vital Signs Temp 35.4 C 11/21/19 08:20 Pulse 78 11/21/19 10:38 Resp 16 11/21/19 10:38 BP 152/101 H 11/21/19 10:38 Pulse Ox 96 11/21/19 10:38 Weight: 99.79 kg - Exam General: Alert, Oriented HEENT: Mucosa Moist & [place] Neck: Supple Lungs: Clear to Auscultation, Normal Respiratory Effort Cardiovascular: Regular Rate, Regular Rhythm GI/Abdominal Exam: Normal Bowel Sounds, Soft, Tender (tenderness ot palpation in periumbilical region). No: Guarding, Rigid Extremities: Non-Tender, No Pedal Edema - Patient Data Lab Results Last 24 hrs: Laboratory Results - last 24 hr 11/21/19 11/21/19 11/21/19 Range/Units 09:19 09:19 09:19 WBC 10.58 (4.0-11.0) K/uL RBC 4.99 (4.50-5.90) M/uL Hgb 16.7 (13.0-17.0) g/dL Hct 45.8 (38.0-50.0) % MCV 91.8 (80.0-98.0) fL MCH 33.5 H (27.0-32.0) pg MCHC 36.5 (31.0-37.0) g/dL RDW Std Deviation 43.5 (28.0-62.0) fl RDW Coeff of [place] 13 (11.0-15.0) % Plt Count 179 (150-400) K/uL MPV 10.50 (7.40-12.00) fL Neut % (Auto) 83.2 H (48.0-80.0) % Lymph % (Auto) 9.2 L (16.0-40.0) % [place] % (Auto) 6.7 (0.0-15.0) % Eos % (Auto) 0.7 (0.0-7.0) % Baso % (Auto) 0.2 (0.0-1.5) % Neut # (Auto) 8.8 H (1.4-5.7) K/uL Lymph # (Auto) 1.0 (0.6-2.4) K/uL [place] # (Auto) 0.7 (0.0-0.8) K/uL Eos # (Auto) 0.1 (0.0-0.7) K/uL Baso # (Auto) 0.0 (0.0-0.1) K/uL Nucleated RBC % 0.0 /100WBC Nucleated RBCs # 0 K/uL Lactate 1.2 (0.20-2.00) mmol/L Sodium 140 (136-148) mmol/L Potassium 3.9 (3.5-5.1) mmol/L Chloride 102 (98-107) mmol/L Carbon Dioxide 27.5 (21.0-32.0) mmol/L BUN 13 (7.0-18.0) mg/dL Creatinine 1.0 (0.8-1.3) mg/dL Est Cr Clr Drug Dosing 116.40 mL/min Estimated GFR (MDRD) > 60.0 ml/min Glucose 138 H (74-106) mg/dL Calcium 8.8 (8.5-10.1) mg/dL Total Bilirubin 1.2 H (0.2-1.0) mg/dL AST 39 H (15-37) IU/L ALT 47 (14-63) IU/L Alkaline Phosphatase 103 (46-116) U/L Troponin I (0.000-0.056) ng/mL Total Protein 6.9 (6.4-8.2) g/dL Albumin 3.5 (3.4-5.0) g/dL Globulin 3.4 (2.6-4.0) g/dL Albumin/Globulin Ratio 1.0 (0.9-1.6) Lipase 882 H (73-393) U/L Urine Color Urine Appearance Urine pH (5.0-8.0) Ur Specific [place] (1.001-1.035) Urine Protein (NEGATIVE) mg/dL Urine Glucose (UA) (NEGATIVE) mg/dL Urine Ketones (NEGATIVE) mg/dL Urine Occult Blood (NEGATIVE) Urine Nitrite (NEGATIVE) Urine Bilirubin (NEGATIVE) Urine Ictotest Urine Urobilinogen (<2.0) EU/dL Ur Leukocyte Esterase (NEGATIVE) 11/21/19 11/21/19 Range/Units 09:19 09:44 WBC (4.0-11.0) K/uL RBC (4.50-5.90) M/uL Hgb (13.0-17.0) g/dL Hct (38.0-50.0) % MCV (80.0-98.0) fL MCH (27.0-32.0) pg MCHC (31.0-37.0) g/dL RDW Std Deviation (28.0-62.0) fl RDW Coeff of [place] (11.0-15.0) % Plt Count (150-400) K/uL MPV (7.40-12.00) fL Neut % (Auto) (48.0-80.0) % Lymph % (Auto) (16.0-40.0) % [place] % (Auto) (0.0-15.0) % Eos % (Auto) (0.0-7.0) % Baso % (Auto) (0.0-1.5) % Neut # (Auto) (1.4-5.7) K/uL Lymph # (Auto) (0.6-2.4) K/uL [place] # (Auto) (0.0-0.8) K/uL Eos # (Auto) (0.0-0.7) K/uL Baso # (Auto) (0.0-0.1) K/uL Nucleated RBC % /100WBC Nucleated RBCs # K/uL Lactate (0.20-2.00) mmol/L Sodium (136-148) mmol/L Potassium (3.5-5.1) mmol/L Chloride (98-107) mmol/L Carbon Dioxide (21.0-32.0) mmol/L BUN (7.0-18.0) mg/dL Creatinine (0.8-1.3) mg/dL Est Cr Clr Drug Dosing mL/min Estimated GFR (MDRD) ml/min Glucose (74-106) mg/dL Calcium (8.5-10.1) mg/dL Total Bilirubin (0.2-1.0) mg/dL AST (15-37) IU/L ALT (14-63) IU/L Alkaline Phosphatase (46-116) U/L Troponin I < 0.050 (0.000-0.056) ng/mL Total Protein (6.4-8.2) g/dL Albumin (3.4-5.0) g/dL Globulin (2.6-4.0) g/dL Albumin/Globulin Ratio (0.9-1.6) Lipase (73-393) U/L Urine Color YELLOW Urine Appearance HAZY Urine pH 5.5 (5.0-8.0) Ur Specific [place] 1.025 (1.001-1.035) Urine Protein NEGATIVE (NEGATIVE) mg/dL Urine Glucose (UA) NEGATIVE (NEGATIVE) mg/dL Urine Ketones NEGATIVE (NEGATIVE) mg/dL Urine Occult Blood NEGATIVE (NEGATIVE) Urine Nitrite NEGATIVE (NEGATIVE) Urine Bilirubin SMALL H (NEGATIVE) Urine Ictotest NEGATIVE Urine Urobilinogen 0.2 (<2.0) EU/dL Ur Leukocyte Esterase NEGATIVE (NEGATIVE) Result Diagrams: 11/21/19 09:19 11/21/19 09:19 Sepsis Event Note - Evaluation Sepsis Screening Result: No Definite Risk - Focused Exam Vital Signs: Vital Signs Temp Pulse Resp BP Pulse Ox 11/21/19 10:38 78 16 152/101 H 96 11/21/19 08:20 35.4 C 101 H 18 145/88 H 99 11/21/19 08:18 105 H 145/88 H 95 Date Exam was Performed: 11/21/19 Time Exam was Performed: 12:02 Problem List Initiated/Reviewed/Updated: Yes Orders Last 24hrs: Active Orders 24 hr Category Date Time Status Admission Status [Patient Status] [ADT] Stat ADT 11/21/19 11:39 Active Antiembolic Devices [RC] PER UNIT ROUTINE Care 11/21/19 12:01 Ordered EKG 12 Lead [EKG Documentation Completion] [RC] STAT Care 11/21/19 09:02 Active EKG 12 Lead [EKG Documentation Completion] [RC] STAT Care 02/04/20 09:02 Inactive Oxygen Therapy [RC] PRN Care 11/21/19 12:01 Ordered Up ad Geovanna [RC] ASDIRECTED Care 11/21/19 12:00 Ordered VTE/DVT Education [RC] PER UNIT ROUTINE Care 11/21/19 12:01 Ordered Vital Signs [RC] Q4H Care 11/21/19 12:01 Ordered Nothing per Oral Now Diet [DIET] Diet 11/21/19 Breakfast Ordered Abdomen Ltd [US] Stat Exams 11/21/19 11:59 Ordered CBC WITH AUTO DIFF [HEME] AM Lab 11/22/19 05:11 Ordered COMPREHENSIVE METABOLIC PN,CMP [CHEM] AM Lab 11/22/19 05:11 Ordered Hemoccult [OCCULT BLOOD DIAGNOSTIC] [OP] Stat Lab 11/21/19 08:57 Ordered Folic Acid Med 11/21/19 12:00 Ordered 1 mg SUBCUT DAILY LORazepam [Ativan] Med 11/21/19 11:58 Ordered See Protocol IVPUSH Q4H PRN Morphine Med 11/21/19 11:58 Ordered 2 mg IVPUSH Q3H PRN Ondansetron [Zofran] Med 11/21/19 12:00 Ordered 4 mg IVPUSH Q4H PRN Pantoprazole [ProTONIX IV] 40 mg Med 11/21/19 12:00 Ordered Sodium Chloride 0.9% [Normal Saline] 10 ml IV Q24H Sodium Chloride 0.9% [Normal Saline] 1,000 ml Med 11/21/19 11:46 Active IV .Bolus Sodium Chloride 0.9% [Normal Saline] 1,000 ml Med 11/21/19 12:00 Ordered IV .Bolus Sodium Chloride 0.9% [Normal Saline] 1,000 ml Med 11/21/19 12:00 Ordered IV ASDIRECTED Thiamine [Vitamin B-1] 100 mg Med 11/21/19 12:00 Ordered Sodium Chloride 0.9% [Normal Saline] 100 ml IV DAILY Nasogastric Orogastric Tube Insertion [OM.PC] Stat Oth 11/21/19 11:41 Ordered Sequential Compression Device [OM.PC] Per Unit Routine Oth 11/21/19 12:01 Ordered Resuscitation Status Routine Resus Stat 11/21/19 12:00 Ordered Medication Orders Folic Acid (Folic Acid) 1 mg SUBCUT DAILY TRICIA Sodium Chloride (Normal Saline) 1,000 mls @ 1,000 mls/hr IV .Bolus ONE Stop: 11/21/19 12:45 Pantoprazole Sodium 40 mg/ (Sodium Chloride) 10 mls @ 300 mls/hr IV Q24H TRICIA Thiamine HCl 100 mg/ Sodium (Chloride) 101 mls @ 202 mls/hr IV DAILY TRICIA Sodium Chloride (Normal Saline) 1,000 mls @ 999 mls/hr IV .Bolus ONE Stop: 11/21/19 13:00 Sodium Chloride (Normal Saline) 1,000 mls @ 200 mls/hr IV ASDIRECTED [facility] Lorazepam (Ativan) 0 mg IVPUSH Q4H PRN; Protocol PRN Reason: CIWAA Morphine Sulfate (Morphine) 2 mg IVPUSH Q3H PRN PRN Reason: Pain Ondansetron HCl (Zofran) 4 mg IVPUSH Q4H PRN PRN Reason: Nausea Assessment/Plan Comment:: 34 yo male admitted for alcoholic pancreatitis. We will treat with IV fluid resuscitation, bowel rest and pain control. Patient is agreeable for alcohol detox. We will place on CIWAA protocol with Ativan as well as thiamin and folic acid.
[2019-11-21] MEDS: Pantoprazole 40 MG in Sodium Chloride 0.9% 10 ML IV SCH (12:42)
[2019-11-21] MEDS: Folic Acid 50 MG/10 ML MDV SUBCUT SCH (12:43)
[2019-11-21] MEDS: Thiamine 100 MG in Sodium Chloride 0.9% 100 ML IV SCH (12:46)
[2019-11-21] MEDS: Morphine 2 MG/ML Syringe IVPUSH PRN ×2 (13:51→20:07)
--- NOTE | 2019-11-21 14:20 | US ---
Limited abdominal ultrasound: Multiple real-time images of the right upper abdomen were obtained. Liver is echogenic as compared to the kidney. Findings suggest fatty infiltration. No discrete focal abnormality is appreciated within the liver. Gallbladder contains no shadowing gallstones. No gallbladder wall thickening or biliary duct dilatation is seen. Pancreas that is seen appears within normal limits. Right kidney shows no hydronephrosis or mass. Right kidney has a length of 10.1 cm. Impression: 1. Fatty infiltration within the liver. 2. No additional abnormality is appreciated on right upper quadrant abdominal ultrasound. Diagnostic code #3 This report was dictated in [place] Standard Time
[2019-11-21] MEDS: Sodium Chloride 0.9% 1,000 ML IV SCH ×2 (14:55→20:06)
[2019-11-22] MEDS: Sodium Chloride 0.9% 1,000 ML IV SCH ×4 (00:57→21:07)
[2019-11-22] MEDS: Morphine 2 MG/ML Syringe IVPUSH PRN ×2 (01:03→05:31)
[2019-11-22 06:45] LABS: BLOOD UREA NITROGEN,BUN 5 mg/dL (7.0-18.0); CARBON DIOXIDE,CO2 25.9 mmol/L (21.0-32.0); CHLORIDE,CL 109 mmol/L (98-107); GLUCOSE RANDOM 88 mg/dL (74-106); POTASSIUM,K 3.7 mmol/L (3.5-5.1); SODIUM,NA 142 mmol/L (136-148)
--- NOTE | 2019-11-22 08:18 | PCM.PN ---
- General Info Date of Service: 11/22/19 Subjective Update: Patient reports pain much better but he is still getting pain medications. Denies nausea/vomiting, wants to eat. CIWAs have been 1s - Review of Systems General: Reports: No Symptoms HEENT: Reports: No Symptoms Pulmonary: Reports: No Symptoms Cardiovascular: Reports: No Symptoms Gastrointestinal: Reports: No Symptoms Genitourinary: Reports: No Symptoms Musculoskeletal: Reports: No Symptoms Skin: Reports: No Symptoms Neurological: Reports: No Symptoms Psychiatric: Reports: No Symptoms - Patient Data Vitals - Most Recent: Last Vital Signs Temp 97.4 F 11/22/19 04:00 Pulse 82 11/22/19 04:00 Resp 16 11/22/19 04:00 BP 143/85 H 11/22/19 04:00 Pulse Ox 96 11/22/19 04:00 Weight - Most Recent: 96.343 kg I&O - Last 24 Hours: Intake & Output 11/21/19 11/22/19 11/22/19 22:59 06:59 14:59 Intake Total 1445 3644 Output Total 0 900 Balance 1445 2744 Lab Results Last 24 Hours: Laboratory Results - last 24 hr 11/21/19 11/21/19 11/21/19 Range/Units 09:19 09:19 09:19 WBC 10.58 (4.0-11.0) K/uL RBC 4.99 (4.50-5.90) M/uL Hgb 16.7 (13.0-17.0) g/dL Hct 45.8 (38.0-50.0) % MCV 91.8 (80.0-98.0) fL MCH 33.5 H (27.0-32.0) pg MCHC 36.5 (31.0-37.0) g/dL RDW Std Deviation 43.5 (28.0-62.0) fl RDW Coeff of [place] 13 (11.0-15.0) % Plt Count 179 (150-400) K/uL MPV 10.50 (7.40-12.00) fL Neut % (Auto) 83.2 H (48.0-80.0) % Lymph % (Auto) 9.2 L (16.0-40.0) % [place] % (Auto) 6.7 (0.0-15.0) % Eos % (Auto) 0.7 (0.0-7.0) % Baso % (Auto) 0.2 (0.0-1.5) % Neut # (Auto) 8.8 H (1.4-5.7) K/uL Lymph # (Auto) 1.0 (0.6-2.4) K/uL [place] # (Auto) 0.7 (0.0-0.8) K/uL Eos # (Auto) 0.1 (0.0-0.7) K/uL Baso # (Auto) 0.0 (0.0-0.1) K/uL Nucleated RBC % 0.0 /100WBC Nucleated RBCs # 0 K/uL Lactate 1.2 (0.20-2.00) mmol/L Sodium 140 (136-148) mmol/L Potassium 3.9 (3.5-5.1) mmol/L Chloride 102 (98-107) mmol/L Carbon Dioxide 27.5 (21.0-32.0) mmol/L BUN 13 (7.0-18.0) mg/dL Creatinine 1.0 (0.8-1.3) mg/dL Est Cr Clr Drug Dosing 116.40 mL/min Estimated GFR (MDRD) > 60.0 ml/min Glucose 138 H (74-106) mg/dL Calcium 8.8 (8.5-10.1) mg/dL Total Bilirubin 1.2 H (0.2-1.0) mg/dL AST 39 H (15-37) IU/L ALT 47 (14-63) IU/L Alkaline Phosphatase 103 (46-116) U/L Troponin I (0.000-0.056) ng/mL Total Protein 6.9 (6.4-8.2) g/dL Albumin 3.5 (3.4-5.0) g/dL Globulin 3.4 (2.6-4.0) g/dL Albumin/Globulin Ratio 1.0 (0.9-1.6) Triglycerides (0-200) mg/dL Cholesterol (50-200) mg/dL LDL Cholesterol, Calc (60-180) mg/dL VLDL Cholesterol (5-55) mg/dL HDL Cholesterol (40-60) mg/dL Cholesterol/HDL Ratio (3.3-6.0) Lipase 882 H (73-393) U/L Urine Color Urine Appearance Urine pH (5.0-8.0) Ur Specific [place] (1.001-1.035) Urine Protein (NEGATIVE) mg/dL Urine Glucose (UA) (NEGATIVE) mg/dL Urine Ketones (NEGATIVE) mg/dL Urine Occult Blood (NEGATIVE) Urine Nitrite (NEGATIVE) Urine Bilirubin (NEGATIVE) Urine Ictotest Urine Urobilinogen (<2.0) EU/dL Ur Leukocyte Esterase (NEGATIVE) 11/21/19 11/21/19 11/21/19 Range/Units 09:19 09:19 09:44 WBC (4.0-11.0) K/uL RBC (4.50-5.90) M/uL Hgb (13.0-17.0) g/dL Hct (38.0-50.0) % MCV (80.0-98.0) fL MCH (27.0-32.0) pg MCHC (31.0-37.0) g/dL RDW Std Deviation (28.0-62.0) fl RDW Coeff of [place] (11.0-15.0) % Plt Count (150-400) K/uL MPV (7.40-12.00) fL Neut % (Auto) (48.0-80.0) % Lymph % (Auto) (16.0-40.0) % [place] % (Auto) (0.0-15.0) % Eos % (Auto) (0.0-7.0) % Baso % (Auto) (0.0-1.5) % Neut # (Auto) (1.4-5.7) K/uL Lymph # (Auto) (0.6-2.4) K/uL [place] # (Auto) (0.0-0.8) K/uL Eos # (Auto) (0.0-0.7) K/uL Baso # (Auto) (0.0-0.1) K/uL Nucleated RBC % /100WBC Nucleated RBCs # K/uL Lactate (0.20-2.00) mmol/L Sodium (136-148) mmol/L Potassium (3.5-5.1) mmol/L Chloride (98-107) mmol/L Carbon Dioxide (21.0-32.0) mmol/L BUN (7.0-18.0) mg/dL Creatinine (0.8-1.3) mg/dL Est Cr Clr Drug Dosing mL/min Estimated GFR (MDRD) ml/min Glucose (74-106) mg/dL Calcium (8.5-10.1) mg/dL Total Bilirubin (0.2-1.0) mg/dL AST (15-37) IU/L ALT (14-63) IU/L Alkaline Phosphatase (46-116) U/L Troponin I < 0.050 (0.000-0.056) ng/mL Total Protein (6.4-8.2) g/dL Albumin (3.4-5.0) g/dL Globulin (2.6-4.0) g/dL Albumin/Globulin Ratio (0.9-1.6) Triglycerides 268 H (0-200) mg/dL Cholesterol 175 (50-200) mg/dL LDL Cholesterol, Calc 55 L (60-180) mg/dL VLDL Cholesterol 53 (5-55) mg/dL HDL Cholesterol 66 H (40-60) mg/dL Cholesterol/HDL Ratio 2.7 L (3.3-6.0) Lipase (73-393) U/L Urine Color YELLOW Urine Appearance HAZY Urine pH 5.5 (5.0-8.0) Ur Specific [place] 1.025 (1.001-1.035) Urine Protein NEGATIVE (NEGATIVE) mg/dL Urine Glucose (UA) NEGATIVE (NEGATIVE) mg/dL Urine Ketones NEGATIVE (NEGATIVE) mg/dL Urine Occult Blood NEGATIVE (NEGATIVE) Urine Nitrite NEGATIVE (NEGATIVE) Urine Bilirubin SMALL H (NEGATIVE) Urine Ictotest NEGATIVE Urine Urobilinogen 0.2 (<2.0) EU/dL Ur Leukocyte Esterase NEGATIVE (NEGATIVE) 11/22/19 11/22/19 Range/Units 05:44 05:44 WBC 8.34 (4.0-11.0) K/uL RBC 4.43 L (4.50-5.90) M/uL Hgb 14.6 (13.0-17.0) g/dL Hct 41.6 (38.0-50.0) % MCV 93.9 (80.0-98.0) fL MCH 33.0 H (27.0-32.0) pg MCHC 35.1 (31.0-37.0) g/dL RDW Std Deviation 45.4 (28.0-62.0) fl RDW Coeff of [place] 13 (11.0-15.0) % Plt Count 150 (150-400) K/uL MPV 10.90 (7.40-12.00) fL Neut % (Auto) 65.9 (48.0-80.0) % Lymph % (Auto) 23.3 (16.0-40.0) % [place] % (Auto) 7.7 (0.0-15.0) % Eos % (Auto) 2.9 (0.0-7.0) % Baso % (Auto) 0.2 (0.0-1.5) % Neut # (Auto) 5.5 (1.4-5.7) K/uL Lymph # (Auto) 1.9 (0.6-2.4) K/uL [place] # (Auto) 0.6 (0.0-0.8) K/uL Eos # (Auto) 0.2 (0.0-0.7) K/uL Baso # (Auto) 0.0 (0.0-0.1) K/uL Nucleated RBC % 0.0 /100WBC Nucleated RBCs # 0 K/uL Lactate (0.20-2.00) mmol/L Sodium 142 (136-148) mmol/L Potassium 3.7 (3.5-5.1) mmol/L Chloride 109 H (98-107) mmol/L Carbon Dioxide 25.9 (21.0-32.0) mmol/L BUN 5 L (7.0-18.0) mg/dL Creatinine 0.7 L (0.8-1.3) mg/dL Est Cr Clr Drug Dosing 166.29 mL/min Estimated GFR (MDRD) > 60.0 ml/min Glucose 88 (74-106) mg/dL Calcium 7.7 L (8.5-10.1) mg/dL Total Bilirubin 1.0 (0.2-1.0) mg/dL AST 29 (15-37) IU/L ALT 31 (14-63) IU/L Alkaline Phosphatase 76 (46-116) U/L Troponin I (0.000-0.056) ng/mL Total Protein 5.5 L (6.4-8.2) g/dL Albumin 2.6 L (3.4-5.0) g/dL Globulin 2.9 (2.6-4.0) g/dL Albumin/Globulin Ratio 0.9 (0.9-1.6) Triglycerides (0-200) mg/dL Cholesterol (50-200) mg/dL LDL Cholesterol, Calc (60-180) mg/dL VLDL Cholesterol (5-55) mg/dL HDL Cholesterol (40-60) mg/dL Cholesterol/HDL Ratio (3.3-6.0) Lipase (73-393) U/L Urine Color Urine Appearance Urine pH (5.0-8.0) Ur Specific [place] (1.001-1.035) Urine Protein (NEGATIVE) mg/dL Urine Glucose (UA) (NEGATIVE) mg/dL Urine Ketones (NEGATIVE) mg/dL Urine Occult Blood (NEGATIVE) Urine Nitrite (NEGATIVE) Urine Bilirubin (NEGATIVE) Urine Ictotest Urine Urobilinogen (<2.0) EU/dL Ur Leukocyte Esterase (NEGATIVE) Med Orders - Current: Current Medications Folic Acid (Folic Acid) 1 mg SUBCUT DAILY [facility] Last Admin: 11/21/19 12:43 Dose: 1 mg Pantoprazole Sodium 40 mg/ (Sodium Chloride) 10 mls @ 300 mls/hr IV Q24H [facility] Last Admin: 11/21/19 12:42 Dose: 300 mls/hr Thiamine HCl 100 mg/ Sodium (Chloride) 101 mls @ 202 mls/hr IV DAILY [facility] Last Admin: 11/21/19 12:46 Dose: 202 mls/hr Sodium Chloride (Normal Saline) 1,000 mls @ 200 mls/hr IV ASDIRECTED [facility] Last Admin: 11/22/19 06:26 Dose: 200 mls/hr Lorazepam (Ativan) 0 mg IVPUSH Q4H PRN; Protocol PRN Reason: CIWAA Ondansetron HCl (Zofran) 4 mg IVPUSH Q4H PRN PRN Reason: Nausea Discontinued Medications Sodium Chloride (Normal Saline) 1,000 mls @ 1,000 mls/hr IV .Bolus ONE Stop: 11/21/19 09:57 Last Admin: 11/21/19 09:23 Dose: 1,000 mls/hr Sodium Chloride (Normal Saline) 1,000 mls @ 1,000 mls/hr IV .Bolus ONE Stop: 11/21/19 12:45 Last Admin: 11/21/19 12:15 Dose: 1,000 mls/hr Sodium Chloride (Normal Saline) 1,000 mls @ 999 mls/hr IV .Bolus ONE Stop: 11/21/19 13:00 Last Admin: 11/21/19 13:45 Dose: 999 mls/hr Iopamidol (Isovue Multipack-370 (76%)) 100 ml IVPUSH ONETIME STA Stop: 11/21/19 10:10 Last Admin: 11/21/19 10:13 Dose: 100 ml Morphine Sulfate (Morphine) 4 mg IVPUSH ONETIME ONE Stop: 11/21/19 09:00 Last Admin: 11/21/19 09:22 Dose: 4 mg Morphine Sulfate (Morphine) 2 mg IVPUSH Q3H PRN PRN Reason: Pain Last Admin: 11/22/19 05:31 Dose: 2 mg Ondansetron HCl (Zofran) 4 mg IVPUSH ONETIME ONE Stop: 11/21/19 09:01 Last Admin: 11/21/19 09:23 Dose: 4 mg - Exam General: Alert, Oriented, Cooperative Lungs: Clear to Auscultation, Normal Respiratory Effort Cardiovascular: Regular Rate, Regular Rhythm GI/Abdominal Exam: Normal Bowel Sounds, Soft, Non-Tender, No Distention Extremities: No Pedal Edema Skin: Warm, Dry, Intact Neurological: No New Focal Deficit Psy/Mental Status: Alert, Normal Affect, Normal Mood. No: Withdrawal Symptoms Sepsis Event Note - Evaluation Sepsis Screening Result: No Definite Risk - Focused Exam Vital Signs: Vital Signs Temp Pulse Resp BP Pulse Ox 11/22/19 04:00 97.4 F 82 16 143/85 H 96 11/22/19 01:00 98.4 F 76 18 139/89 94 L Date Exam was Performed: 11/22/19 Time Exam was Performed: 12:04 - Problem List Review Problem List Initiated/Reviewed/Updated: Yes - Plan Plan:: 1. Acute alcoholic pancreatitis- Will decrease IVF to 125, advance to clear liquid diet, stop IV pain medication. US did not show GB dysfunction. Continue PPI. 2. Alcohol abuse- continue CIWA/Ativan, folic acid, and thiamine. Last drink was yesterday morning.
[2019-11-22] MEDS: Thiamine 100 MG in Sodium Chloride 0.9% 100 ML IV SCH (09:00)
[2019-11-22] MEDS: Folic Acid 50 MG/10 ML MDV SUBCUT SCH (09:00)
[2019-11-22] MEDS: Pantoprazole 40 MG in Sodium Chloride 0.9% 10 ML IV SCH (11:21)
[2019-11-22] MEDS ORDERED: Morphine 2 MG/ML Syringe IVPUSH ONE (20:44)
[2019-11-23] MEDS ORDERED: Morphine 2 MG/ML Syringe IVPUSH PRN (01:00)
[2019-11-23] MEDS: Sodium Chloride 0.9% 1,000 ML IV SCH ×2 (04:34→15:56)
[2019-11-23 06:45] LABS: BLOOD UREA NITROGEN,BUN 4 mg/dL (7.0-18.0); CARBON DIOXIDE,CO2 23.7 mmol/L (21.0-32.0); CHLORIDE,CL 107 mmol/L (98-107); GLUCOSE RANDOM 87 mg/dL (74-106); POTASSIUM,K 3.5 mmol/L (3.5-5.1); SODIUM,NA 140 mmol/L (136-148)
--- NOTE | 2019-11-23 07:57 | PCM.PN ---
- General Info Date of Service: 11/23/19 Subjective Update: Patient developed abdominal pain last night, required morphine. Thought it over did it on the juice. Slowed down his drinking and no more pain. No signs of withdrawal. - Review of Systems General: Reports: No Symptoms HEENT: Reports: No Symptoms Pulmonary: Reports: No Symptoms Cardiovascular: Reports: No Symptoms Gastrointestinal: Reports: No Symptoms Genitourinary: Reports: No Symptoms Musculoskeletal: Reports: No Symptoms Skin: Reports: No Symptoms Neurological: Reports: No Symptoms Psychiatric: Reports: No Symptoms - Patient Data Vitals - Most Recent: Last Vital Signs Temp 97.1 F 11/23/19 04:00 Pulse 67 11/23/19 04:00 Resp 18 11/23/19 04:00 BP 127/69 11/23/19 04:00 Pulse Ox 96 11/23/19 04:00 Weight - Most Recent: 96.343 kg I&O - Last 24 Hours: Intake & Output 11/22/19 11/23/19 11/23/19 22:59 06:59 14:59 Intake Total 3776 1750 Output Total 600 950 Balance 3176 800 Lab Results Last 24 Hours: Laboratory Results - last 24 hr 11/23/19 11/23/19 11/23/19 Range/Units 05:53 05:53 05:53 WBC 6.23 (4.0-11.0) K/uL RBC 4.33 L (4.50-5.90) M/uL Hgb 14.4 (13.0-17.0) g/dL Hct 40.6 (38.0-50.0) % MCV 93.8 (80.0-98.0) fL MCH 33.3 H (27.0-32.0) pg MCHC 35.5 (31.0-37.0) g/dL RDW Std Deviation 44.9 (28.0-62.0) fl RDW Coeff of [place] 13 (11.0-15.0) % Plt Count 133 L (150-400) K/uL MPV 11.10 (7.40-12.00) fL Neut % (Auto) 63.7 (48.0-80.0) % Lymph % (Auto) 21.5 (16.0-40.0) % [place] % (Auto) 10.0 (0.0-15.0) % Eos % (Auto) 4.2 (0.0-7.0) % Baso % (Auto) 0.6 (0.0-1.5) % Neut # (Auto) 4.0 (1.4-5.7) K/uL Lymph # (Auto) 1.3 (0.6-2.4) K/uL [place] # (Auto) 0.6 (0.0-0.8) K/uL Eos # (Auto) 0.3 (0.0-0.7) K/uL Baso # (Auto) 0.0 (0.0-0.1) K/uL Nucleated RBC % 0.0 /100WBC Nucleated RBCs # 0 K/uL Sodium 140 (136-148) mmol/L Potassium 3.5 (3.5-5.1) mmol/L Chloride 107 (98-107) mmol/L Carbon Dioxide 23.7 (21.0-32.0) mmol/L BUN 4 L (7.0-18.0) mg/dL Creatinine 0.7 L (0.8-1.3) mg/dL Est Cr Clr Drug Dosing 166.29 mL/min Estimated GFR (MDRD) > 60.0 ml/min Glucose 87 (74-106) mg/dL Calcium 7.8 L (8.5-10.1) mg/dL Magnesium 1.7 L (1.8-2.4) mg/dL Med Orders - Current: Current Medications Folic Acid (Folic Acid) 1 mg SUBCUT DAILY [facility] Last Admin: 11/22/19 09:00 Dose: 1 mg Pantoprazole Sodium 40 mg/ (Sodium Chloride) 10 mls @ 300 mls/hr IV Q24H [facility] Last Admin: 11/22/19 11:21 Dose: 300 mls/hr Thiamine HCl 100 mg/ Sodium (Chloride) 101 mls @ 202 mls/hr IV DAILY [facility] Last Admin: 11/22/19 09:00 Dose: 202 mls/hr Sodium Chloride (Normal Saline) 1,000 mls @ 125 mls/hr IV ASDIRECTED [facility] Last Admin: 11/23/19 04:34 Dose: 125 mls/hr Magnesium Sulfate 2 gm/ Premix 50 mls @ 25 mls/hr IV ONETIME ONE Stop: 11/23/19 09:40 Lorazepam (Ativan) 0 mg IVPUSH Q4H PRN; Protocol PRN Reason: CIWAA Morphine Sulfate (Morphine) 1 mg IVPUSH Q4H PRN PRN Reason: Pain Ondansetron HCl (Zofran) 4 mg IVPUSH Q4H PRN PRN Reason: Nausea Discontinued Medications Sodium Chloride (Normal Saline) 1,000 mls @ 1,000 mls/hr IV .Bolus ONE Stop: 11/21/19 09:57 Last Admin: 11/21/19 09:23 Dose: 1,000 mls/hr Sodium Chloride (Normal Saline) 1,000 mls @ 1,000 mls/hr IV .Bolus ONE Stop: 11/21/19 12:45 Last Admin: 11/21/19 12:15 Dose: 1,000 mls/hr Sodium Chloride (Normal Saline) 1,000 mls @ 999 mls/hr IV .Bolus ONE Stop: 11/21/19 13:00 Last Admin: 11/21/19 13:45 Dose: 999 mls/hr Iopamidol (Isovue Multipack-370 (76%)) 100 ml IVPUSH ONETIME STA Stop: 11/21/19 10:10 Last Admin: 11/21/19 10:13 Dose: 100 ml Morphine Sulfate (Morphine) 4 mg IVPUSH ONETIME ONE Stop: 11/21/19 09:00 Last Admin: 11/21/19 09:22 Dose: 4 mg Morphine Sulfate (Morphine) 2 mg IVPUSH Q3H PRN PRN Reason: Pain Last Admin: 11/22/19 05:31 Dose: 2 mg Morphine Sulfate (Morphine) 2 mg IVPUSH ONETIME ONE Stop: 11/22/19 20:45 Last Admin: 11/22/19 20:57 Dose: 2 mg Ondansetron HCl (Zofran) 4 mg IVPUSH ONETIME ONE Stop: 11/21/19 09:01 Last Admin: 11/21/19 09:23 Dose: 4 mg - Exam General: Alert, Oriented, Cooperative Lungs: Clear to Auscultation, Normal Respiratory Effort Cardiovascular: Regular Rate, Regular Rhythm GI/Abdominal Exam: Normal Bowel Sounds, Soft, Non-Tender, No Distention Extremities: No Pedal Edema Skin: Warm, Dry, Intact Neurological: No New Focal Deficit Psy/Mental Status: Alert, Normal Affect, Normal Mood Sepsis Event Note - Evaluation Sepsis Screening Result: No Definite Risk - Focused Exam Vital Signs: Vital Signs Temp Pulse Resp BP Pulse Ox 11/23/19 04:00 97.1 F 67 18 127/69 96 11/23/19 00:00 97.8 F 84 17 125/66 94 L Date Exam was Performed: 11/23/19 Time Exam was Performed: 10:39 - Problem List Review Problem List Initiated/Reviewed/Updated: Yes - My Orders Last 24 Hours: My Active Orders 11/22/19 11:08 Communication Order [RC] PRN 11/22/19 Lunch Clear Liquid Diet [DIET] 11/23/19 07:41 Magnesium Sulfate/Water [Magnesium Sulfate in Water Premix] 2 gm Premix Bag 1 bag IV ONETIME - Plan Plan:: 1. Acute alcoholic pancreatitis- Continue IVF at 125, advance diet as tolerated , stop IV pain medication. US did not show GB dysfunction. Continue PPI. 2. Alcohol abuse- continue CIWA/Ativan, folic acid, and thiamine. Last drink was Wednesday. 3. Hypomagnesemia- replaced Possible discharge this evening based on progress.
[2019-11-23] MEDS: Magnesium Sulfate/Water 2 GM in Premix Bag 1 BAG IV ONE ×2 (08:29→09:07)
[2019-11-23] MEDS: Folic Acid 50 MG/10 ML MDV SUBCUT SCH (08:29)
[2019-11-23] MEDS: Thiamine 100 MG in Sodium Chloride 0.9% 100 ML IV SCH (08:40)
[2019-11-23] MEDS ORDERED: Acetaminophen 325 MG Tab PO PRN (10:40)
--- NOTE | 2019-11-23 10:42 | PCM.DCSUM1 ---
Discharge Summary - Hospital Course HPI Initial Comments: Admission Date: 11/21/19 Discharge Date: 11/23/19 Admission Diagnosis: 1. Acute alcoholic pancreatitis 2. Alcohol abuse Discharge Diagnosis: 1. Acute alcoholic pancreatitis- resolved 2. Alcohol abuse Procedures: None Consults: None Hospital Course: The patient is a 34-year-old male who presented to the ER with abdominal pain that radiated to his back. In the ER found to have elevated lipase and CT scan showed inflammation around pancreatic head and duodenum. Admitted to medical floor. For acute pancreatitis, started NPO and advanced diet as tolerated as symptoms improved. Initially on IVF that were decreased and then stopped as patient was drinking better on his own. RUQ US ruled out gallbladder dysfunction. Triglycerides were 268. Over the course of the admission, pain resolved, and he was tolerating an oral diet. For his alcohol withdrawal, placed on CIWA/Ativan protocol and started on thiamine/folic acid. By day of discharge patient was feeling better, symptoms had resolved, and no sign of withdraw. Disposition: Home Discharge Condition: vitals stable, tolerating oral diet, ambulating without difficulty, symptom improvement Discharge Instructions: regular diet as tolerated, no alcohol, activity as tolerated, take medications as prescribed. Symptoms to report to physician include fever/chills, chest pain, shortness of breath, abdominal pain, erythema , drainage/discharge, or not improving as expected. Discharge Medications: Albuterol [Ventolin HFA] 2 puff INH Q4HR PRN Omeprazole Magnesium [Prilosec] 10 mg PO BID Folic Acid 1 mg PO DAILY Thiamine [Vitamin B-1] 100 mg PO BEDTIME Follow-up: Dr. Ward 11/30/19 - Discharge Data Discharge Date: 11/23/19 Discharge Disposition: Home, Self-Care 01 Condition: Fair - Referral to Home Health Primary Care Physician: PCP None - Discharge Plan *PRESCRIPTION DRUG MONITORING PROGRAM REVIEWED*: Yes *COPY OF PRESCRIPTION DRUG MONITORING REPORT IN PATIENT MARILY: Yes Prescriptions/Med Rec: Folic Acid 1 mg PO DAILY 14 Days #14 tablet Thiamine [Vitamin B-1] 100 mg PO BEDTIME 14 Days #14 tab Home Medications: Home Meds Albuterol [Ventolin HFA] 2 puff INH Q4HR PRN #1 inhaler 01/23/19 [Rx] Omeprazole Magnesium [Prilosec] 10 mg PO BID 14 Days #28 suspdr.pkt 05/27/19 [Rx ] Folic Acid 1 mg PO DAILY 14 Days #14 tablet 11/23/19 [Rx] Thiamine [Vitamin B-1] 100 mg PO BEDTIME 14 Days #14 tab 11/23/19 [Rx] Patient Handouts: Alcohol Use Disorder, Acute Pancreatitis, [id number], Recovering From Addiction Referrals: [facility] [Outside] Layo Fuentes MD [Resident] - 11/30/19 2:30 pm - Discharge Summary/Plan Comment DC Time >30 min.: No - Patient Data Vitals - Most Recent: Last Vital Signs Temp 97.9 F 11/23/19 08:00 Pulse 75 11/23/19 08:00 Resp 18 11/23/19 08:00 BP 137/70 11/23/19 08:00 Pulse Ox 98 11/23/19 08:00 Weight - Most Recent: 96.343 kg I&O - Last 24 hours: Intake & Output 11/22/19 11/23/19 11/23/19 22:59 06:59 14:59 Intake Total 3776 1750 Output Total 600 950 Balance 3176 800 Lab Results - Last 24 hrs: Laboratory Results - last 24 hr 11/23/19 11/23/19 11/23/19 Range/Units 05:53 05:53 05:53 WBC 6.23 (4.0-11.0) K/uL RBC 4.33 L (4.50-5.90) M/uL Hgb 14.4 (13.0-17.0) g/dL Hct 40.6 (38.0-50.0) % MCV 93.8 (80.0-98.0) fL MCH 33.3 H (27.0-32.0) pg MCHC 35.5 (31.0-37.0) g/dL RDW Std Deviation 44.9 (28.0-62.0) fl RDW Coeff of [place] 13 (11.0-15.0) % Plt Count 133 L (150-400) K/uL MPV 11.10 (7.40-12.00) fL Neut % (Auto) 63.7 (48.0-80.0) % Lymph % (Auto) 21.5 (16.0-40.0) % [place] % (Auto) 10.0 (0.0-15.0) % Eos % (Auto) 4.2 (0.0-7.0) % Baso % (Auto) 0.6 (0.0-1.5) % Neut # (Auto) 4.0 (1.4-5.7) K/uL Lymph # (Auto) 1.3 (0.6-2.4) K/uL [place] # (Auto) 0.6 (0.0-0.8) K/uL Eos # (Auto) 0.3 (0.0-0.7) K/uL Baso # (Auto) 0.0 (0.0-0.1) K/uL Nucleated RBC % 0.0 /100WBC Nucleated RBCs # 0 K/uL Sodium 140 (136-148) mmol/L Potassium 3.5 (3.5-5.1) mmol/L Chloride 107 (98-107) mmol/L Carbon Dioxide 23.7 (21.0-32.0) mmol/L BUN 4 L (7.0-18.0) mg/dL Creatinine 0.7 L (0.8-1.3) mg/dL Est Cr Clr Drug Dosing 166.29 mL/min Estimated GFR (MDRD) > 60.0 ml/min Glucose 87 (74-106) mg/dL Calcium 7.8 L (8.5-10.1) mg/dL Magnesium 1.7 L (1.8-2.4) mg/dL Med Orders - Current: Current Medications Acetaminophen (Tylenol) 650 mg PO Q4H PRN PRN Reason: Pain/Fever Folic Acid (Folic Acid) 1 mg SUBCUT DAILY [facility] Last Admin: 11/23/19 08:29 Dose: 1 mg Pantoprazole Sodium 40 mg/ (Sodium Chloride) 10 mls @ 300 mls/hr IV Q24H [facility] Last Admin: 11/22/19 11:21 Dose: 300 mls/hr Thiamine HCl 100 mg/ Sodium (Chloride) 101 mls @ 202 mls/hr IV DAILY [facility] Last Admin: 11/23/19 08:40 Dose: 202 mls/hr Sodium Chloride (Normal Saline) 1,000 mls @ 125 mls/hr IV ASDIRECTED [facility] Last Admin: 11/23/19 04:34 Dose: 125 mls/hr Lorazepam (Ativan) 0 mg IVPUSH Q4H PRN; Protocol PRN Reason: CIWAA Ondansetron HCl (Zofran) 4 mg IVPUSH Q4H PRN PRN Reason: Nausea Discontinued Medications Sodium Chloride (Normal Saline) 1,000 mls @ 1,000 mls/hr IV .Bolus ONE Stop: 11/21/19 09:57 Last Admin: 11/21/19 09:23 Dose: 1,000 mls/hr Sodium Chloride (Normal Saline) 1,000 mls @ 1,000 mls/hr IV .Bolus ONE Stop: 11/21/19 12:45 Last Admin: 11/21/19 12:15 Dose: 1,000 mls/hr Sodium Chloride (Normal Saline) 1,000 mls @ 999 mls/hr IV .Bolus ONE Stop: 11/21/19 13:00 Last Admin: 11/21/19 13:45 Dose: 999 mls/hr Magnesium Sulfate 2 gm/ Premix 50 mls @ 25 mls/hr IV ONETIME ONE Stop: 11/23/19 09:40 Last Admin: 11/23/19 09:07 Dose: 25 mls/hr Iopamidol (Isovue Multipack-370 (76%)) 100 ml IVPUSH ONETIME STA Stop: 11/21/19 10:10 Last Admin: 11/21/19 10:13 Dose: 100 ml Morphine Sulfate (Morphine) 4 mg IVPUSH ONETIME ONE Stop: 11/21/19 09:00 Last Admin: 11/21/19 09:22 Dose: 4 mg Morphine Sulfate (Morphine) 2 mg IVPUSH Q3H PRN PRN Reason: Pain Last Admin: 11/22/19 05:31 Dose: 2 mg Morphine Sulfate (Morphine) 2 mg IVPUSH ONETIME ONE Stop: 11/22/19 20:45 Last Admin: 11/22/19 20:57 Dose: 2 mg Morphine Sulfate (Morphine) 1 mg IVPUSH Q4H PRN PRN Reason: Pain Ondansetron HCl (Zofran) 4 mg IVPUSH ONETIME ONE Stop: 11/21/19 09:01 Last Admin: 11/21/19 09:23 Dose: 4 mg
[2019-11-23] MEDS: Pantoprazole 40 MG in Sodium Chloride 0.9% 10 ML IV SCH (11:59)
== END 2019-11-23 17:31 | disposition home or self-care (01) | DRG 439 ==
LOC: MW.ED 08:18 → MW.MS 12:23
PROVIDERS: ADMIT Internal Medicine; ATTEND Internal Medicine
DX: K85.20 Alcohol induced acute pancreatitis without necrosis or infection (principal); F10.239 Alcohol dependence with withdrawal, unspecified; J45.909 Unspecified asthma, uncomplicated; K21.9 Gastro-esophageal reflux disease without esophagitis; F17.210 Nicotine dependence, cigarettes, uncomplicated; E83.42 Hypomagnesemia; Z79.899 Other long term (current) drug therapy; Z88.0 Allergy status to penicillin; Z88.1 Allergy status to other antibiotic agents; Z88.5 Allergy status to narcotic agent
CPT/HCPCS: 36415; 74177; 74177-26; 76705; 76705-26; 80048; 80053; 80061; 81003; 83605; 83690; 83735; 84484; 85025; 93005; 96361; 96374; 96375; 99284; 99285-25; C9113; J2270; J2405; J3411; J3475; J7030; J7050; Q9967